=== PATIENT | female | born 1950 | race Caucasian/White ===

== ENCOUNTER 2019-07-22 12:25 | Outpatient (CLI) | payer MEDICARE, SELFPAY ==
--- NOTE | ~2019-07-22 | XR_ITS ---
EXAMINATION: XR hand RT 2V EXAM DATE: 07/22/2019 12:45 INDICATION: No known recent injury provided at this time. Pain of the right hand, distal third finge r. TECHNIQUE: Frontal and lateral projections of the right hand. Comparison is made to prior examinatio n from 10/02/2015. FINDINGS: There is been interval ankylosis of the right third distal interphalangeal joint. Chronic surgical change of the first digit with interval healing. Previously seen surgical pin has been remov ed. There is moderate first carpometacarpal, interphalangeal, third proximal interphalangeal primary osteoarthritis. Otherwise mild polyarticular right hand osteoarthritis. There are no bony erosions i dentified. IMPRESSION: 1. Interval ankylosis third DIP joint. 2. Polyarticular right hand osteoarthritis. Reviewed, dictated and finalized at location A. SERVICE TECHNICIAN
== END 2019-07-22 12:26 | disposition home or self-care (01) ==
PROVIDERS: PCP Family Medicine; Visit Provider Family Medicine
DX: M19.041 Primary osteoarthritis, right hand (principal)
CPT/HCPCS: 73120

== ENCOUNTER 2020-08-17 14:54 | Outpatient (CLI) | payer MEDICARE, SELFPAY ==
--- NOTE | ~2020-08-17 | MM_ITS ---
EXAMINATION: MM screening [facility] BI w gene HISTORY: Screening mammogram TECHNIQUE: Craniocaudal and mediolateral oblique 3-D tomosynthesis images were obtained and synthetic 2-D images were generated. CAD analysis was submitted and interpreted. COMPARISON: 08/12/2017, 07/11/2016, 05/23/2015 BREAST PARENCHYMAL COMPOSITION: The breasts are almost entirely fatty. FINDINGS: Scattered benign-appearing calcifications are present. There is no evidence of suspicious m ass, calcification, or architectural distortion to suggest malignancy in either breast. There has bee n no suspicious interval change. IMPRESSION: 1. No mammographic evidence of malignancy. 2. Recommend routine screening mammography in one year. BI-RADS Category 2: Benign finding(s). Reviewed, dictated and finalized at location A.
== END 2020-08-17 14:55 | disposition home or self-care (01) ==
LOC: ANHIMG 15:01
PROVIDERS: PCP Family Medicine; Visit Provider Physician Assistant
DX: Z12.31 Encounter for screening mammogram for malignant neoplasm of breast (principal)
CPT/HCPCS: 77063; 77067

== ENCOUNTER 2021-01-18 13:37 | Outpatient (CLI) | payer MEDICARE, SELFPAY ==
--- NOTE | ~2021-01-18 | XR_ITS ---
EXAMINATION: XR chest 2V DATE: 01/18/2021 14:44 INDICATION: Shortness of breath TECHNIQUE: PA and lateral views of the chest are obtained. COMPARISON: 12/30/2015 FINDINGS: The lungs are free of acute opacities. There is chronic mild atelectasis of the left lung b ase. There is no pleural effusion or pneumothorax. The cardiomediastinal silhouette is normal. There are changes of interval posterior thoracolumbar fusion. Changes of anterior fusion are noted in the c ervicothoracic spine. Surgical clips in the right upper quadrant are likely from prior cholecystectom y. IMPRESSION: 1. No acute cardiopulmonary abnormality. Reviewed, dictated and finalized at location A.
--- NOTE | 2021-01-18 13:55 | ECHO_ITS ---
Patient Info Name: Rabia Ellsworth Age: 70 years : 1950 Gender: Female Ht: 59 in Wt: 167 lbs BSA: 1.81 m2 HR: 56 bpm BP: 120 / 78 mmHg Technical Quality: Fair Exam Date: 01/18/2021 2:05 PM Exam Location: [facility] Pulmonary Patient Status: Outpatient Admit Date: 01/18/2021 Staff Ordering Physician: Arnulfo Jarrett PA-C Residential Plumber: Dana Winslow RDCS Attending Provider: Arnulfo Jarrett PA-C Referring Physician: Kolby LEE; Exam Type: CA echo doppler color flow Study Info Indications R06.02 - Shortness of breath Complete two-dimensional, color flow and Doppler transthoracic echocardiogram is performed. Summary 1. Complete two-dimensional, color flow and Doppler transthoracic echocardiogram is performed. 2. Left ventricular chamber dimension is normal. 3. Left ventricular systolic function is normal, estimated at 60-65%. 4. The left ventricular diastolic function is grade I diastolic dysfunction. 5. E/e' 8 is minimally elevated. 6. There is trace tricuspid valve regurgitation. 7. No pulmonary hypertension, estimated pulmonary arterial systolic pressure is 35 mmHg. 8. There is trivial pericardial effusion. Left Ventricle E/e' 8 is minimally elevated. Left ventricular chamber dimension is normal. Left ventricular systolic function is normal, estimated at 60-65%. The left ventricular diastolic function is grade I diastolic dysfunction. Right Ventricle Right ventricular chamber dimension is normal. Right ventricular systolic function is normal. Left Atria Left atrial chamber dimension is normal. Right Atria Right atrial chamber dimension is normal. Aortic Valve The aortic valve is trileaflet. There is no aortic valve stenosis. There is no aortic valve regurgitation. Pulmonic Valve There is no pulmonic regurgitation. Mitral Valve There is no mitral valve stenosis. There is no mitral valve regurgitation. Tricuspid Valve There is trace tricuspid valve regurgitation. No pulmonary hypertension, estimated pulmonary arterial systolic pressure is 35 mmHg. Pericardium/Pleural There is trivial pericardial effusion. Inferior Vena Cava Normal inferior vena cava with >50% collapse upon inspiration consistent with normal right atrial pressure, 5 mmHg. Aorta The aortic root size at the sinus of Valsalva is normal. Left Ventricular Outflow Tract Name Value Normal LVOT 2D LVOT Diameter 2.0 cm LVOT Doppler LVOT Peak Gradient 5 mmHg LVOT Mean Gradient 2 mmHg LVOT VTI 26 cm LVOT VTI/AV VTI Ratio 1.0 LVOT Stroke Volume 84 ml LVOT CO 4.4 l/min LVOT CI 2.4 l/min/m2 Pulmonic Valve Name Value Normal RVOT Doppler
== END 2021-01-18 13:38 | disposition home or self-care (01) ==
LOC: ANHCARD 13:39
PROVIDERS: PCP Family Medicine; Visit Provider Physician Assistant
DX: R06.02 Shortness of breath (principal)
CPT/HCPCS: 71046; 93306

== ENCOUNTER 2021-02-27 08:38 | Outpatient (CLI) | payer MEDICARE, SELFPAY ==
--- NOTE | ~2021-02-27 | NM_ITS ---
EXAMINATION: NM molly stress w perfusion DATE: 02/27/2021 11:24 INDICATION: Shortness of breath TECHNIQUE: Rest images were obtained following intravenous administration of 9.44 mCi Tc99m tetrofosm in (Myoview). The patient was infused intravenously with Lexiscan (Regadenoson). Then, 30 mCi Tc99m t etrofosmin (Myoview) was administered intravenously, and stress images were obtained. Data was recons tructed into short axis and horizontal and vertical long axis SPECT images. Gated SPECT images were a lso obtained. COMPARISON: None. FINDINGS: There is no definite reversible or fixed perfusion abnormality to suggest ischemia or infar ction. There is normal left ventricular chamber size, wall motion and ejection fraction. Left ventr icular ejection fraction measures >70%. IMPRESSION: 1. Normal myocardial perfusion at rest and during stress. 2. Left ventricular ejection fraction measuring >70%. Reviewed, dictated and finalized at location A.
--- NOTE | 2021-02-27 08:52 | EST_ITS ---
Patient Info Name: Rabia Ellsworth Age: 70 years : 1950 Gender: Female Ht: 57 in Wt: 169 lbs BSA: 1.80 m2 HR: 61 bpm BP: 146 / 81 mmHg Heart Rhythm: Sinus Rhythm Exam Date: 02/27/2021 9:40 AM Exam Location: [facility] [place] Stress Patient Status: Outpatient Admit Date: 02/27/2021 Staff Ordering Physician: Arnulfo Jarrett PA-C Attending Provider: Arnulfo Jarrett PA-C Exercise Technologist: Meera Feldman CT Exercise Physician: Triston Hubbard DO Exam Type: CA stress molly w NM Study Info Indications R06.02 - Shortness of breath A regadenoson stress test was performed. Summary 1. 1. Negative lexiscan stress test for ischemic ST changes by ECG criteria. 2. 2. Baseline hypertension. 3. 3. Nuclear scan to follow and will be reported separately. Please correlate with it. 4. 4. Patient informed of the above results. Protocol: Lexiscan Stress ECG Details Stage: REST Duration (min): 1 min : 0 sec HR (bpm): 61 SBP (mmHg): 146 DBP (mmHg): 81 Stage: REST Duration (min): 8 min : 31 sec HR (bpm): 60 SBP (mmHg): 146 DBP (mmHg): 81 Stage: STAGE 1 Duration (min): 1 min : 0 sec HR (bpm): 75 SBP (mmHg): 146 DBP (mmHg): 81 Stage: RECOVERY Duration (min): 1 min : 0 sec HR (bpm): 83 SBP (mmHg): 146 DBP (mmHg): 61 Stage: RECOVERY Duration (min): 2 min : 0 sec HR (bpm): 79 SBP (mmHg): 122 DBP (mmHg): 62 Stage: RECOVERY Duration (min): 2 min : 12 sec HR (bpm): 78 SBP (mmHg): 122 DBP (mmHg): 62 Rest HR: 60 bpm Peak HR: 83 bpm Rest Sys BP: 146 mmHg Peak Sys BP: 146 mmHg Max Pred HR: 148 bpm % Max Pred HR: 56 % Target HR: 126 bpm Max RPP: 12,118 bpm*mmHg Termination Reason: Completed protocol Cardiac Symptoms: Shortness of breath Total Time: 1 min : 0 sec Rest Leon BP: 81 mmHg Peak Leon BP: 61 mmHg Total Dose: 0.4 mg Resting ECG Sinus rhythm, low voltage in precordial leads. Stress ECG No ST changes. Arrhythmias None. Report Signatures
--- NOTE | 2021-02-27 11:55 | WPDPFTINT ---
PFT Procedure Performed PFT Procedure Performed Plethysmography (Lung Vol) Diffusing Cap (DLCO) Flow Vol Loop Spirometry w/o Bronchodil PFT Interpretation Lung volumes were measured with the body plethysmography method. The lung volumes are unremarkable. Spirometry showed diminished expiratory flow rates and a normal FEV1 to FVC ratio of 74%. No bronchodilator study was carried out. Lung diffusion capacity is mildly reduced at 66% predicted. The diminished expiratory flows in conjunction with a normal FEV1 to FVC ratio and a normal total lung capacity is indicative of nonspecific pattern. Impression: Nonspecific pattern. Mild reduction in lung diffusion capacity.
== END 2021-02-27 08:39 | disposition home or self-care (01) ==
LOC: ANHCARD 08:39
PROVIDERS: PCP Family Medicine; Visit Provider Physician Assistant
DX: R06.02 Shortness of breath (principal)
CPT/HCPCS: 78452; 93017; 94375; 94726; 94729; A9502; J2785

== ENCOUNTER 2021-04-03 13:20 | Outpatient (CLI) | payer MEDICARE, SELFPAY ==
--- NOTE | ~2021-04-03 | XR_ITS ---
XR hip BI 2V w AP pelvis DATE: 04/03/2021 13:54 INDICATION: Bilateral posterior hip pain; no known injury. TECHNIQUE: AP pelvis. AP and lateral views of each hip. COMPARISON: 02/27/2010 AP pelvis and left hip FINDINGS: Since 02/27/2010 there has been posterior fusion including at least the L4, L5 and S1 level s with screws superimposing both sacroiliac areas. There is lucency along the bilateral sacroiliac ar ea screws which suggests loosening. No pelvic fracture or bone destruction is detected. The pubic symphysis and sacroiliac joints are intact. Mild osteitis pubis. No fracture or dislocation or bone destruction of either hip is detected. Hip joint spaces are symmet glenn and relatively well preserved. IMPRESSION: Posterior spinal fusion in the lower lumbar and sacroiliac area bilaterally Suggestion of loosening of bilateral sacroiliac screws No pelvic fracture or fracture or dislocation Reviewed, dictated and finalized at location A. RITY INSTALLER IMPRESSION: Posterior spinal fusion in the lower lumbar and sacroiliac area linden aterally Suggestion of loosening of bilateral sacroiliac screws No pelvic fracture or fracture or dislocation
--- NOTE | ~2021-04-03 | XR_ITS ---
EXAMINATION: XR knee RT 3V DATE: 04/03/2021 13:53 INDICATION: Right knee pain. TECHNIQUE: 3 views of right knee including standing views were obtained. COMPARISON: Right knee radiographs 09/24/2007 FINDINGS: Bone alignment is normal. No fracture. There is mild tricompartmental osteoarthritis charac terized by tiny osteophytes without joint space narrowing. No knee joint effusion. IMPRESSION: 1. Mild right knee osteoarthritis. Reviewed, dictated and finalized at location A. DEVELOPER
--- NOTE | ~2021-04-03 | XR_ITS ---
EXAMINATION: XR knee LT 3V DATE: 04/03/2021 13:53 INDICATION: Knee pain. TECHNIQUE: 3 views of left knee standing were obtained. COMPARISON: None. FINDINGS: Bone alignment is normal. No fracture. There is mild tricompartmental osteoarthritis charac terized by tiny marginal osteophytes. No joint space narrowing. No knee joint effusion. IMPRESSION: 1. Mild left knee osteoarthritis. Reviewed, dictated and finalized at location A. OR ENGINEERING TECH
== END 2021-04-03 13:21 | disposition home or self-care (01) ==
LOC: ANHIMG 13:30
PROVIDERS: PCP Family Medicine; Visit Provider Family Medicine
DX: Z98.1 Arthrodesis status (principal); M86.8X8 Other osteomyelitis, other site; M17.0 Bilateral primary osteoarthritis of knee
CPT/HCPCS: 73521; 73562

== ENCOUNTER → 2021-05-08 03:02 | Outpatient (CLI) | payer MEDICARE, SELFPAY ==
[2021-05-08 19:39] LABS: SARS-CoV-2 RNA PCR Negative
== END ==
PROVIDERS: PCP Family Medicine; Visit Provider Family Medicine
DX: R06.02 Shortness of breath (principal); R53.83 Other fatigue; Z20.822 Contact with and (suspected) exposure to COVID-19
CPT/HCPCS: C9803; U0003; U0005